=== PATIENT | male | born 1960 | race Native Hawaiian/Other Pacific Islander ===

== ENCOUNTER 2018-02-23 14:53 | Outpatient (CLI) | payer OTHER | END 2018-02-23 14:56 | disposition short-term general hospital (02) | LOC: AMB 14:53 | DX: T67.5XXA Heat exhaustion, unspecified, initial encounter (principal) | CPT/HCPCS: A0425; A0427 ==

== ENCOUNTER 2018-02-23 14:56 | Emergency (ER) | payer OTHER ==
[~2018-02-23] VITALS: Ht 175.3 cm; Wt 56.7 kg
[2018-02-23 15:00] VITALS: TEMP 97.3
[2018-02-23 15:28] LABS: PLATELET COUNT 506 K/uL (142-355)
[2018-02-23 15:38] LABS: POTASSIUM 3.4 mmol/L (3.6-5.2)
[2018-02-23 16:43] VITALS: BP 94/59
== END 2018-02-23 16:44 | disposition home or self-care (01) ==
LOC: ED 14:56
PROVIDERS: Internal Medicine
DX: R55 Syncope and collapse (principal); E86.0 Dehydration; E87.6 Hypokalemia; D72.829 Elevated white blood cell count, unspecified; J96.00 Acute respiratory failure, unspecified whether with hypoxia or hypercapnia
CPT/HCPCS: 36415; 80053; 82550; 84484; 85027; 93005; 96360; 96361; 99284